=== PATIENT | female | born 1975 | race African-American/Black ===

== ENCOUNTER 2024-12-15 05:20 | Emergency (ER) | payer OTHER, SELFPAY ==
[2024-12-15] VITALS (7 sets, daily range): BP systolic 86–103; BP diastolic 52–67
[2024-12-15 05:40] LABS: % Basophils 0.2 % (0-2); % Eosinophils 0.2 % (0-6); % Immature Granulocytes 0.2 % (0-0.5); % Lymphocytes 8.1 % (20.5-51.1); % Monocytes 1.6 % (1.7-9.3); % Neutrophils 89.7 % (42.2-75.2); Absolute Monocytes 0.2 10^3/uL (0.1-0.6); Hematocrit 34.2 % (37.0-47.0); Hemoglobin 11.7 g/dL (12.0-16.0); Mean Corp Hgb Conc. 34.2 g/dL (33.0-37.0); Mean Corpuscular Hgb 30.3 pg (27.0-31.0); Mean Corpuscular Volume 88.6 fL (81.0-99.0); Mean Platelet Volume 9.4 fL (7.4-10.4); Nucleated Red Blood Cells % 0 %; Platelet Count 275 10^3/uL (130-400); Red Blood Cell Count 3.86 10^6/uL (4.20-5.40); Red Cell Dist. Width 13.1 % (11.5-14.5); White Blood Cell Count 12.3 10^3/uL (4.8-10.8)
[2024-12-15 06:00] LABS: ALT (SGPT) 14 U/L (0-35); AST (SGOT) 25 U/L (14-36); Albumin 3.9 g/dl (3.5-5.0); Alkaline Phosphatase 76 U/L (38-126); Blood Urea Nitrogen 14 mg/dl (7-17); Calcium 9.1 mg/dl (8.4-10.2); Carbon Dioxide 24 mmol/L (22-30); Chloride 111 mmol/L (98-107); Estimated Creatinine Clearance 77 ml/min; Glucose 106 mg/dl (70-99); Potassium 4.1 mmol/L (3.5-5.1); Sodium 141 mmol/L (135-145); Total Bilirubin 0.5 mg/dl (0.2-1.3); eGFR > 60.00
[2024-12-15 06:11] LABS: NT-proBNP 43.3 pg/ml; Troponin I < 0.012 ng/ml
--- NOTE | 2024-12-15 06:34 | ED.GENMED ---
History of Present Illness
General
Chief Complaint: Chest Pain
Source: patient
Exam Limitations: none
Time Seen by Provider: 12/15/24 06:08
Nursing documentation reviewed up to this point in time: agreed with
History of Present Illness
History of Present Illness:
Patient presents to ED secondary to sudden onset of chest pain upon waking up this morning associated with shortness of breath. Patient denies any symptoms when she went to sleep around 10 PM. She woke up around 12:30 AM and had 1 bout of
nonbloody diarrhea. She was able to fall back asleep, but woke up 3 hours later with aforementioned chest pain. Chest pain described as tightness, across her chest, without any alleviating or exacerbating factors. Denies diaphoresis. Denies
nausea or vomiting. Denies dizziness. Denies chest palpitations. She proceeded to call her mother who then called 911. Patient received aspirin en route to the hospital. Denies recent illness. Denies recent travel. Denies recent surgery.
Denies back pain. Denies leg pain or swelling. Denies drug alcohol or smoking. Denies family history of early heart disease. Denies family history of blood clots. Denies previous history of similar chest pain. Denies recent change in
activities. Patient medical history significant for recently diagnosed thyroiditis, for which she has been taking levothyroxine for the past 1 month. In addition, she has been taking Ozempic for the past 3 months with approximate 10 pound weight
loss.
Review of Systems
Review of Systems
Allergies reviewed?: Yes
All Other Systems: ROS reviewed and negative except as documented in HPI and ROS
Constitutional: Reports no symptoms; Denies fever
Respiratory: Reports trouble breathing; Denies cough
Cardiac: Reports chest pain; Denies diaphoresis, palpitations or syncope
ABD/GI: Reports no symptoms; Denies nausea or vomiting
Musculoskeletal: Reports no symptoms
Skin: Reports no symptoms
Neurological: Reports no symptoms
Phy Exam
Physical Exam
Physical Exam:
Physical Exam
General: no apparent distress, not acutely ill. afebrile
Head: nc/at. eomi
Neck: supple. no meningeal signs.
Heart: s1/s2 regular rate and rhythm
Lungs: no acute respiratory distress. clear bilaterally
Abdomen: normal bowel sounds. not tender.
Neuro: alert and oriented x 3. no focal neurological deficits
Skin: no rash
Psychiatric: well kept. interactive and cooperative
Extremities: no edema. no calf tenderness.
Scores
Heart Score for Chest Pain Patients
STEMI patient?: No
History: Slightly or Non-Suspicious
ECG: Normal
Age: >45 - <65 years
Risk Factors: 1 or 2 Risk Factors
Troponin: </= Normal Limit
Heart Score for Chest Pain Patients: 2
Heart Score Risk: 2.5% MACE over next 6 weeks
Course
Orders/Labs/Results
Orders:
Orders
12/15/24 05:21
Electrocardiogram (*1) Urgent
Reason for Study: Other
Other Reason for Exam: Respiratory Distress
Cardiac Monitoring- Treatment ONCE
IV Insert/Care/Rem.- Treatment PRN
CR Chest - 2 Views Urgent
Comment:
Reason For Exam: respiratory distress
O2 Therapy [RESP] Urgent
Titrate/Wean O2 to maintain O2 sat greater than (%): 93
Special Instructions: TO MAINTAIN CONTINUOUS O2 SATS >/= 93%
Pulse Ox/cont/shift [RESP] Urgent
Quantity: 1
Special Instructions: continuous pulse ox
12/15/24 05:22
EKG- Treatment ONCE
12/15/24 05:29
Complete Blood Count/With Diff Urgent
Comprehensive Metabolic Panel Urgent
HCG, Serum Qualitative Screen Urgent
Comment: ADD ON
Lipase Urgent
NT-proBNP Urgent
Troponin I Urgent
12/15/24 06:33
Add On- LAB Urgent
Tests Added?: lipase
12/15/24 06:47
D-Dimer Urgent
12/15/24 08:54
Add On- LAB Urgent
Tests Added?: serum B-HCG, qualitative
CT Chest PE Study Urgent
Comment:
Reason For Exam: cp/sob with elevated d-dimer
12/15/24 11:29
Troponin I Urgent
Abnormal Lab Results
12/15/24 12/15/24
05:29 06:47
WBC 12.3 H 10^3/uL
(4.8-10.8)
RBC 3.86 L 10^6/uL
(4.20-5.40)
Hgb 11.7 L g/dL
(12.0-16.0)
Hct 34.2 L %
(37.0-47.0)
Absolute Neuts (auto) 11.0 H 10^3/uL
(1.4-6.5)
Absolute Lymphs (auto) 1.0 L 10^3/uL
(1.2-3.4)
Neutrophils % 89.7 H %
(42.2-75.2)
Lymphocytes % 8.1 L %
(20.5-51.1)
Monocytes % 1.6 L %
(1.7-9.3)
D-Dimer 1.56 H ug/mlFEU
(0.00-0.50)
Chloride 111 H mmol/L
(98-107)
Glucose 106 H mg/dl
(70-99)
12/15/24 05:29
12/15/24 05:29
Vital Signs
Initial and Last Documented VS:
Initial Vital Signs
Temp Pulse Resp Pulse Ox
98.3 F 83 16 98
12/15/24 05:23 12/15/24 05:23 12/15/24 05:23 12/15/24 05:23
Last Documented Vital Signs
Temp Pulse Resp BP Pulse Ox
98.3 F 72 18 88/58 97
12/15/24 05:23 12/15/24 12:56 12/15/24 12:56 12/15/24 12:56 12/15/24 12:56
MDM/Problems Addressed
MDM/Problems Addressed:
D-dimer mildly elevated. As such, CTA PE study ordered.
CT reort reviewed and discussed with patient and her mother. CT PE study negative for acute pulm embolism. However, cholelithiasis noted, which may potentially explain patient's presenting symptoms. Patient with gradual resolution of his symptoms
during observation. However in light of patient's family history of heart disease, patient will be referred to cardiology for an outpatient consultation, with return precautions provided.
*Pulse Oximetry
Patient hypoxic: no (84%)
*EKG
EKG Intrepretation Date: 12/15/24
Heart Rate: 84
Rate: normal
Rhythm: sinus
Glidden: normal axis
Interval: normal interval
*Critical Care Note
Total Time (30-74mins, 75-104mins- exclusive of procedures): Not Applicable
ED Attending Note
-
Portions of this chart may have been created with voice recognition software.� Occasional wrong word or��sound alike� substitutions may have occurred due to the inherent limitations of voice recognition software.
Discharge Plan
Departure
Patient Disposition: Home (Routine Discharge)
Date of Disposition: 12/15/24
Time of Disposition: 12:38
Patient with high blood pressure during this ER visit?: No
Condition: Good
Discharge Problem:
Chest pain, Gallstone
Instructions: Gallstones - Discharge instructions, Chest Pain DCA Follow Up
Prescriptions:
No Action
levothyroxine
1 tab PO DAILY
Rx Instructions:
unsure of dose
Referrals:
Ciavarelli,Shira Bessie, DO [Family Provider, General]
Activity Restrictions/Additional Instructions:
As discussed, please follow-up with your primary care physician and/or referred dependency counselor for reevaluation. Please return to ED with worsening symptoms.
Interventions
Interventions:
*Risk Screen - Suicide Last Done: 12/15/24 05:23
*General Assessment Last Done: 12/15/24 05:23
*Neglect/Abuse Screening Last Done: 12/15/24 05:23
*ED- Fall Risk Assessment Last Done: 12/15/24 05:23
*ED COVID-19 Vaccine History Last Done: 12/15/24 05:23
*Nursing Disposition Last Done: 12/15/24 12:57
ED- Cardiac Assessment Last Done: 12/15/24 05:30
Discharge Date and Time
Discharge Date/Time: 12/15/24 12:57
Print Language: ROMANIAN
[2024-12-15 07:37] LABS: Lipase 287 U/L (23-300)
[2024-12-15 07:44] LABS: D-Dimer 1.56 ug/mlFEU (0.00-0.50)
[2024-12-15 09:37] LABS: HCG, Serum Qualitative Screen Negative
[2024-12-15 12:15] LABS: Troponin I < 0.012 ng/ml
== END 2024-12-15 12:57 | disposition home or self-care (01) ==
LOC: EMR 05:20
PROVIDERS: Student in an Organized Health Care Education/Training Program; EMERGENCY PHYSICIAN Emergency Medicine; FAMILY PHYSICIAN Student in an Organized Health Care Education/Training Program
DX: R07.89 Other chest pain (principal); K80.20 Calculus of gallbladder without cholecystitis without obstruction; R06.02 Shortness of breath
CPT/HCPCS: 99284; 71046; 71275; 80053; 83690; 83880; 84484; 84703; 85025; 85379; 93005; Q9967